=== PATIENT | female | born 1970 | race Caucasian/White ===

== ENCOUNTER 2020-02-18 11:24 | Emergency (ER) | payer MEDICAID ==
[~2020-02-18] VITALS: Ht 167.6 cm; Wt 91.9 kg
[2020-02-18 12:15] LABS: BASOPHILS % (AUTO) 1 % (0-1); EOSINOPHILS % (AUTO) 2 % (1-7); LYMPHOCYTES % (AUTO) 30 % (22-44); MEAN CORPUSCULAR HEMOGLOBIN 28.4 pg (27.0-34.8); MEAN CORPUSCULAR HGB CONC 32.8 g/dL (32.4-35.8); MEAN PLATELET VOLUME 7.2 fL (7.4-10.4); MONOCYTES % (AUTO) 7 % (2-9); NEUTROPHILS % (AUTO) 61 % (42-75); PLATELET COUNT 313 x10^3/uL (130-400); RED BLOOD COUNT 4.91 x10^6/uL (3.82-5.3); RED CELL DISTRIBUTION WIDTH 14.3 % (9.6-15.2)
[2020-02-18 12:19] LABS: MD NO
[2020-02-18 12:28] LABS: CALCIUM 9.5 mg/dL (8.5-10.1); CHLORIDE 112 mmol/L (98-107)
[2020-02-18 12:33] LABS: ALANINE AMINOTRANSFERASE 54 U/L (12-78); ALBUMIN 4.1 g/dL (3.4-5.0); ALKALINE PHOSPHATASE 85 U/L (45-117); BILIRUBIN,TOTAL 0.2 mg/dL (0.2-1.0); CREATININE 1.06 mg/dL (0.55-1.02); TOTAL PROTEIN 7.7 g/dL (6.4-8.2)
[2020-02-18 12:52] LABS: ANION GAP 2 mmol/L (5-15)
[2020-02-18 12:58] LABS: MICROSCOPIC NOT IND
--- NOTE | 2020-02-18 13:26 | NUR ---
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
--- NOTE | 2020-02-18 13:49 | NUR ---
pt c/o abd pain for 2 days, previously 1 week of left rib pain.
[2020-02-18] MEDS ORDERED: ONDANSETRON 2MG/ML, 2ML ONE (13:52)
[2020-02-18] MEDS ORDERED: ONDANSETRON 2MG/ML, 2ML IVPush ONE (14:00)
[2020-02-18] MEDS ORDERED: SODIUM CHLORIDE FLUSH 10ML SYR IVF ONE (14:00)
[2020-02-18] MEDS ORDERED: MORPHINE SULFATE 4 MG/ML, 1ML IVPush PRN (14:00)
[2020-02-18 14:08] VITALS: BP 115/67
[2020-02-18] MEDS ORDERED: OMNIPAQUE 350 MG/ML, 100ML BOTTLE ONE (14:26)
== END 2020-02-18 15:08 | disposition home or self-care (01) ==
LOC: ED 13:46
DX: R10.32 Left lower quadrant pain (principal); R11.0 Nausea; R94.31 Abnormal electrocardiogram [ECG] [EKG]
CPT/HCPCS: 36415; 74177; 80053; 81003; 84703; 85025; 93005; 96374; 99285; J2405; Q9967